=== PATIENT | female | born 1975 | race Caucasian/White ===

== ENCOUNTER → 2017-08-03 | Outpatient (CLI) | payer BC ==
--- NOTE | 2017-08-05 12:06 | MAM ---
EXAM DESCRIPTION: 3D Screening BILATERAL : Digital Mammography. CLINICAL HISTORY: 42 years Female SCREENING . No complaints. Mother with breast cancer. Premenopausal. No HRT. COMPARISON: Baseline study at this facility. No prior reports available. TECHNIQUE: Bilateral CC and MLO projection full-field images, 3-D tomosynthesis digital mammographic technique. Also bilateral synthesized CC/ MLO full-field images. CAD not utilized. FINDINGS: The breast parenchymal density pattern is: Heterogeneously dense breast tissue, which may obscure small masses. No skin thickening or nipple retraction focal asymmetry in the posterior third of the lateral right breast at the 800 clock position. On the posterior margin of the image. No associated microcalcifications. 8 cm from the nipple. Retroareolar focal asymmetry 2 cm from the nipple abutting the posterior nipple line of the left breast. No associated microcalcifications. IMPRESSION: BI-RADS CATEGORY: 0 - INCOMPLETE- Need additional imaging evaluation. FOLLOW-UP: Recall for additional imaging: Bilateral digital full field LM images of the breasts. Exaggerated right breast craniocaudal imaging. Bilateral targeted breast ultrasound.. Written communication concerning the IMPRESSION and Follow-up, will be mailed to the patient and referring health care provider. Electronically signed by: Eris Li MD 08/05/2017 12:06 PM APPLIANCE TESTER
== END ==
LOC: MAMMO 16:30
PROVIDERS: ATTEND Family Medicine
DX: Z12.31 Encounter for screening mammogram for malignant neoplasm of breast (principal)

== ENCOUNTER → 2017-08-17 | Outpatient (CLI) | payer BC ==
--- NOTE | 2017-08-17 12:53 | US ---
EXAM DESCRIPTION: Breast,Bilateral: Ultrasound CLINICAL HISTORY: 42 yearsFemaleABN MAMMO COMPARISON: Digital 3-D tomosynthesis diagnostic bilateral breasts on this visit. 3-D tomosynthesis bilateral screening study 08/03/2017. TECHNIQUE: Transcutaneous scanning of the bilateral breasts breast utilizing two-dimensional and Doppler modes. Scanning performed by the associate product integrity engineer and Dr. Li. FINDINGS: Scanning of the right breast at the 630 - 700 clock position 4 cm from the nipple abutting the chest wall: Heterogeneous breast tissue with islands of fibroglandular tissue scattered through fatty breast. Chest wall is visible. No discrete solid mass or cyst. No parenchymal edema or skin changes or abnormal calcifications. Normal Doppler vascularity. Scanning of the left breast at the 600 clock position 4 cm from the nipple. Relatively well-defined round to oval hypoechoic structures with echogenic centers and variable posterior acoustic features. Parallel orientation. Minimal vascularity. Surrounding breast is mostly fatty heterogeneous fibroglandular tissues. No parenchymal edema or homogeneous solid mass or cyst. No skin changes or large calcifications. Normal Doppler evaluation. IMPRESSION: 1. Bi-Rads Category 2: Benign. 2. Please refer to bilateral 3-D tomosynthesis diagnostic breast examination and report on this visit. The FINDINGS and the FOLLOW-UP plan were reviewed in person with the patient after the examination. Written communication explaining the IMPRESSION and FOLLOW-UP will be mailed to the patient and referring care provider. Electronically signed by: Eris iL MD 08/17/2017 12:52 PM TECHNICAL STAFF ENGINEER
--- NOTE | 2017-08-17 14:52 | MAM ---
EXAM DESCRIPTION: 3D Diagnostic, Bilateral : Digital Mammography. CLINICAL HISTORY: 42 years Female ABNORMAL MAMMO . Focal Asymmetry posterior right breast at the 630 clock position abutting the chest wall. Focal asymmetry retroareolar left breast 600 clock position. COMPARISON: 3-D tomosynthesis bilateral screening examination 08/03/2017. Bilateral targeted breast ultrasound following this examination. Reports from prior examinations also reviewed. TECHNIQUE: Bilateral LM projection full-field images, 3-D tomosynthesis digital mammographic technique. Also bilateral synthesized LM projection full-field images. CAD not utilized. FINDINGS: The breast parenchymal density pattern is:. Heterogeneously dense breast tissue, which may obscure small masses. No skin thickening or nipple retraction possible retroareolar mass density at the 600 clock position of the left breast 4 cm from the nipple. Focal asymmetry is again noted posterior right breast near the chest wall at the 630 clock position. ULTRASOUND: Scanning of the right breast at the 630 - 700 clock position 4 cm from the nipple abutting the chest wall: Heterogeneous breast tissue with islands of fibroglandular tissue scattered through fatty breast. Chest wall is visible. No discrete solid mass or cyst. No parenchymal edema or skin changes or abnormal calcifications. Normal Doppler vascularity. Scanning of the left breast at the 600 clock position 4 cm from the nipple. Relatively well-defined round to oval hypoechoic structures with echogenic centers and variable posterior acoustic features. Parallel orientation. Minimal vascularity. Surrounding breast is mostly fatty heterogeneous fibroglandular tissues. No parenchymal edema or homogeneous solid mass or cyst. No skin changes or large calcifications. Normal Doppler evaluation. IMPRESSION: BI-RADS CATEGORY: 2 - BENIGN FINDINGS. FOLLOW UP: Routine digital bilateral screening, one year interval from July 2017. The FINDINGS and the FOLLOW-UP plan were reviewed in person with the patient after the examination. Written communication explaining the IMPRESSION and FOLLOW-UP will be mailed to the patient and referring care provider. According to the [employer], yearly mammograms are recommended starting at age 40 and continuing as long as a woman is in good health. Any breast change noted on a breast self-exam should be reported promptly to the patient's healthcare provider. Breast MRI is recommended for women with an approximately 20-25% or greater lifetime risk of breast cancer, including women with a strong family history of breast or ovarian cancer and women who have been treated for Hodgkin's disease. A negative mammographic report should not delay tissue diagnosis in patients with significant clinical history or physical findings. Extremely dense breast tissue limits the sensitivity of digital mammography. Electronically signed by: Eris Li MD 08/17/2017 2:52 PM [facility]
== END ==
LOC: US 10:30
PROVIDERS: ATTEND Physician Assistant
DX: N63.11 Unspecified lump in the right breast, upper outer quadrant (principal); N63.42 Unspecified lump in left breast, subareolar
CPT/HCPCS: 76641; 77066; G0279

== ENCOUNTER → 2018-09-08 | Outpatient (CLI) | payer BC | LOC: GMAJS 10:53 | PROVIDERS: ATTEND Physician Assistant | DX: Z82.49 Family history of ischemic heart disease and other diseases of the circulatory system (principal) ==

== ENCOUNTER 2019-06-10 19:35 | Emergency (ER) | payer BC ==
[2019-06-10] MEDS ORDERED: NEOMYCIN-BACITRACIN-POLYMYXIN 0.9 GM UD TOP ONE (22:37)
[2019-06-10] MEDS ORDERED: CHLORHEXIDINE GLUCONATE 4 % 15 ML UD TOP ONE (22:37)
[2019-06-10] MEDS ORDERED: LIDOCAINE 1% 10 ML VIAL INJ ONE (22:40)
--- NOTE | 2019-06-10 23:03 | ED.PDOC ---
History of Present Illness - General Chief Complaint: Laceration Stated Complaint: laceration to left wrist Time Seen by Provider: 06/10/19 23:00 Source: patient - History of Present Illness Initial Comments: 44 yo female who presents with cc of left wrist laceration following accidental injury at home just [employer]. Reports was trying to open a jar with a razor and the razor slipped and caused an approx 2 cm laceration to the volar aspect of the left wrist. Reports minimal bleeding with the injury which resolved quickly with pressure. Reports minimal pain. Presented to ED for evaluation for sutures. Last tetanus imm was 3 weeks ago. Denies any weakness or numbness, no other acute injuries reported. Allergies/Adverse Reactions: Allergies Ciprofloxacin [From Cipro] Allergy (Verified 06/10/19 20:46) Review of Systems - Review of Systems Review of Systems: 06/10/19 23:02 as per HPI All other Systems: Reviewed and Negative Past Medical History (General) - Patient Medical History Hx Seizures: No Hx Stroke: No Hx Dementia: No Hx Asthma: No Hx of COPD: No Hx Cardiac Disorders: No Hx Congestive Heart Failure: No Hx Pacemaker: No Hx Hypertension: No Hx Thyroid Disease: No Hx Diabetes: No Hx Gastroesophageal Reflux: No Hx Renal Disease: No Hx Cancer: No Hx of HIV: No Hx Hepatitis C: No Hx MRSA: No - Vaccination History Hx Tetanus, Diphtheria Vaccination: Yes Hx Influenza Vaccination: Yes Hx Pneumococcal Vaccination: No - Social History Hx Alcohol Use: Yes - occasional Family Medical History - Family History Mother Family History: Unknown Physical Exam - Physical Exam General Appearance: Alert, Comfortable, No apparent distress Eye Exam: bilateral normal Ears, Nose, Throat: hearing grossly normal, normal ENT inspection Neck: non-tender, full range of motion, normal inspection Respiratory: lungs clear, normal breath sounds, no respiratory distress Cardiovascular/Chest: normal peripheral pulses, regular rate, rhythm, no edema, no murmur Peripheral Pulses: radial,right: 2+ Gastrointestinal/Abdominal: non tender, soft Back Exam: normal inspection Extremity: normal range of motion, non-tender Neurologic: no motor/sensory deficits, alert, normal mood/affect Skin Exam: normal color, warm/dry, other - approx 2 cm linear laceration to volar aspect of left wrist through skin and subcut tissue, appears clean & hemostatic Progress - Progress Progress: 06/10/19 23:04 Left wrist laceration -cleansed copiously with sterile saline and Hibiclens and repaired in ED with sutures without issue -discussed wound care and return warnings -dc home in good condition, sutures out in 7-10 days Son Cordon MD Billing #[id number] Procedures - Laceration/Wound Repair Left Wrist Wound Length (cm): 2 Wound's Depth, Shape: superficial Wound Explored: no foreign body removed Betadine Prep?: No - copious Hibiclens and sterile saline Anesthesia: 1% Lidocaine Volume Anesthetic (cc's): 5 Wound Repaired With: sutures Suture Size/Type: 5:0 Number of Sutures: 3 Layer Closure?: No Sterile Dressing Applied?: Yes Splint Applied?: No Departure - Departure Clinical Impression: Laceration of left wrist without complication Qualifiers: Encounter type: initial encounter Qualified Code(s): S61.512A - Laceration without foreign body of left wrist, initial encounter Time of Disposition: 23:06 Disposition: Discharge to Home or Self Care Condition: Good Departure Forms: ED Discharge - Pt. Copy, Patient Portal Self Enrollment Instructions: Laceration Repair With Stitches (DC) Diet: resume usual diet Referrals: Juan Manuel Atkinson MD [Primary Care Provider] - 1-2 Weeks Additional Instructions: Stitches out in 7-10 days (06/17-). Return if any redness, warmth, swelling, or pus-like discharge from wound.
[2019-06-10 23:27] VITALS: BP 101/65; TEMP 98.3; O2SAT 97
== END 2019-06-10 23:15 | disposition home or self-care (01) ==
LOC: ER 19:35
DX: S61.512A Laceration without foreign body of left wrist, initial encounter (principal); W45.8XXA Other foreign body or object entering through skin, initial encounter; Y93.89 Activity, other specified; Z88.1 Allergy status to other antibiotic agents; Y92.009 Unspecified place in unspecified non-institutional (private) residence as the place of occurrence of the external cause